=== PATIENT | male | born 2000 | race Hispanic/Latino ===

== ENCOUNTER 2024-02-15 08:05 | Inpatient (IN) | payer OTHER, SELFPAY ==
[2024-02-15 09:05] LABS: Absolute Basophils 0.1 K/uL (0-0.5); Absolute Lymphocytes (CBC) 2.5 K/uL (0.7-4.9); Absolute Monocytes 1.2 K/uL (0.1-1.3); Absolute Neutrophil 11.1 K/uL (1.8-8.0); Basophils % 0.4 % (0-1.3); Eosinophils % 0.1 % (0-4.4); Hematocrit 50.7 % (39.6-49.0); Hemoglobin 16.9 g/dL (13.6-17.9); Lymphocytes % 16.7 % (15.3-44.8); MCH 29.6 pg (27.0-35.0); MCHC 33.3 g/dL (32.0-36.0); MCV 88.9 fL (80-100); MPV 8.4 fL (7.6-11.3); Monocytes % 7.9 % (3.3-12.3); Neutrophils % 74.9 % (41.7-73.7); Nucleated RBC Absolute Count 0.3 (0-0); Nucleated Red Blood Cells % 1.8 % (0-0); Platelets 466 thou/uL (152-406); Red Cell Distribution Width 14.9 % (12.1-15.2)
[2024-02-15] MEDS ORDERED: KETOROLAC 30 MG/ML INJ ONE (09:09)
[2024-02-15] MEDS ORDERED: NA CHLORIDE 0.9% 1,000 ML ONE ×3 (09:09→15:15)
[2024-02-15] MEDS ORDERED: ONDANSETRON 4 MG/2 ML VIAL ONE (09:09)
[2024-02-15 09:27] LABS: Specific Gravity 1.017 (1.005-1.030); Sqamous Epithelial <5 /HPF (None Seen); Transitional Epithelial <5 /HPF (None Seen); Urine Bacteria None Seen /HPF (<20); Urine Bilirubin 1+ (Negative); Urine Blood 1+ (Negative); Urine Clarity Extremely Turbid (Clear); Urine Color Yellow (Yellow); Urine Culture Reflex Order NOT NEEDED; Urine Glucose NEGATIVE (Negative); Urine Ketones NEGATIVE (Negative); Urine Microscopic Reflex YN ORDER UMIC; Urine Mucus Slight /HPF (None Seen); Urine Nitrite NEGATIVE (Negative); Urine Protein 2+ (Negative); Urine RBC <5 /HPF (None Seen); Urine Urobilinogen 1+ (Normal); Urine WBC <5 /HPF (<5); Urine pH 5.5 (5.0-7.0)
[2024-02-15 09:28] LABS: Albumin 5.4 g/dL (3.4-5.0); Albumin/Globulin Ratio 1.1 (1.1-1.8); Anion Gap 20.2 mEq/L (5.0-15.0); Bilirubin Total 1.1 mg/dL (0.2-1.0); Globulin 4.7 g/dL (2.3-3.5); Potassium 3.2 mEq/L (3.5-5.1); Protein, Total 10.1 g/dL (6.4-8.2)
[2024-02-15] MEDS ORDERED: FAMOTIDINE 20 MG/2 ML VIAL IV ONE (09:29)
--- NOTE | 2024-02-15 09:47 | RAD REPORT ---
EXAM DESCRIPTION: CT - Abdomen Pelvis Wo Contrast - 02/15/2024 9:35 am CLINICAL HISTORY: Abdominal pain. ABD PAIN COMPARISON: No comparisons TECHNIQUE: CT imaging of the abdomen and pelvis was performed without contrast. Solid organ, bowel a nd vascular assessment is limited due to lack of IV and oral contrast. All CT scans are performed using dose optimization technique as appropriate and may include automated exposure control or mA/KV adjustment according to patient size. FINDINGS: The lower lung wright are clear. The liver, spleen, pancreas, adrenal glands and kidneys are within normal limits for a limited non-co ntrast examination. No bowel obstruction, free air, free fluid or abscess. The appendix is normal. The osseous structures are within normal limits. IMPRESSION: No acute intra-abdominal or pelvic findings. A limited non-contrast examination was performed as detailed.
[2024-02-15 09:49] LABS: Blood Morphology Comment NOT SEEN (NOT SEEN); Platelet Estimate ADEQ; White Blood Cell Scan OK (OK)
[2024-02-15 10:38] LABS: Anion Gap 19.2 mEq/L (5.0-15.0); Potassium 3.2 mEq/L (3.5-5.1)
--- NOTE | 2024-02-15 10:46 | EDPHYS ---
Physician Documentation [facility] Name: Trent Valenzuela Age: 24 yrs Sex: Male : 2000 Arrival Date: 02/15/2024 Time: 08:05 Bed 13 Private MD: ED Physician Juhi Thurston HPI: 02/14 09:18 This 24 yrs old Male presents to ER via Ambulatory with complaints of Vomiting.sd2 09:18 24-year-old male presents with a chief complaint of nausea, vomiting and abdominal sd2 cramping for the past 3 days. He reports he has not been able to keep anything down. He has tried taking Tylenol but has not been able to keep that down either. He denies any associated fever, shortness of breath, diarrhea or urinary symptoms. He does report a history of smoking marijuana daily for years. No new food exposures or sick contacts.. Historical: - Allergies: 08:29 No Known Allergies; ap3 - Home Meds: 08:29 None [Active]; ap3 - PMHx: 08:29 None; ap3 - Immunization history:: Client reports having NOT received the Covid vaccine. - Infectious Disease History:: Denies. - Social history:: Smoking status: Patient denies any tobacco usage or history of. Patient uses street drugs, marijuana. ROS: 09:18 Constitutional: Negative for fever, chills, and weight loss, Eyes: Negative for injury, sd2 pain, redness, and discharge, Cardiovascular: Negative for chest pain, palpitations, and edema, Respiratory: Negative for shortness of breath, cough, wheezing. Abdomen/GI: Positive for abdominal pain, nausea, vomiting, Negative for diarrhea MS/Extremity: Negative for injury and deformity, Skin: Negative for injury, rash, and discoloration, Neuro: Negative for headache, numbness and tingling. Exam: 09:18 Constitutional: This is a well developed, well nourished patient who is awake, alert, sd2 and in no acute distress. Head/Face: Normocephalic, atraumatic. Eyes: EOMI, normal conjunctiva bilaterally Chest/axilla: Normal chest wall appearance and motion. Nontender with no deformity. Cardiovascular: Regular rate and rhythm with a normal S1 and S2. No gallops, murmurs, or rubs. 2+ distal pulses. Respiratory: Lungs have equal breath sounds bilaterally, clear to auscultation and percussion. No rales, rhonchi or wheezes noted. No increased work of breathing, no retractions or nasal flaring. Abdomen/GI: Soft, ND, epigastric tenderness, no rebound or guarding Skin: Warm, dry with normal turgor. Normal color with no rashes, no lesions, and no evidence of cellulitis. MS/ Extremity: Pulses equal, no cyanosis. Neurovascular intact. Full, normal range of motion. Psych: Awake, alert, with orientation to person, place and time. Behavior, mood, and affect are within normal limits. Vital Signs: 08:27 BP 110 / 75; Pulse 99; Resp 19; Temp 98.1; Pulse Ox 99% ; Weight 68.04 kg; Height 5 ft. ap3 3 in. ; Pain 4/10; 09:53 BP 117 / 86; Pulse 67; Resp 16 S; Pulse Ox 100% on R/A; kc6 10:45 BP 129 / 71; Pulse 93; Resp 16 S; Pulse Ox 100% on R/A; kc6 11:33 BP 107 / 50; Pulse 77; Resp 16 S; Pulse Ox 100% on R/A; kc6 13:27 BP 124 / 80; Pulse 71; Resp 16 S; Pulse Ox 99% on R/A; kc6 08:27 Body Mass Index 26.57 (68.04 kg, 160.02 cm) ap3 08:27 Pain Scale: Adult ap3 MDM: 08:58 Patient medically screened. sd2 09:18 Differential diagnosis: Nonspecific abd pain, gastritis, cholecystitis, pancreatitis, sd2 appendicitis, diverticulitis, viral gastroenteritis, gastroenteritis, hyperemesis cannabinoid syndrome among others. Data reviewed: vital signs, nurses notes, lab test result(s), radiologic studies, CT scan. 10:43 I considered the following discharge prescriptions or medication management in the sd2 emergency department Medications were administered in the Emergency Department. See MAR. Care significantly affected by the following Social Determinants of Health: Misuse of alcohol and/or drugs. Response to treatment: the patient's symptoms have markedly improved after treatment. ED course: Labs reviewed with acute renal failure and hypokalemia. 2L IVFs given. CK elevated. Pt feeling improved. CTAP negative for acute pathology. Suspect hyperemesis. Pt to be admitted at this time.. 02/14 08:50 Order name: CBC with Diff; Complete Time: 09:51 kc6 02/14 08:50 Order name: CMP; Complete Time: 09:38 kc6 02/14 08:50 Order name: Lipase; Complete Time: 09:38 kc6 02/14 08:50 Order name: Urinalysis w/ reflexes; Complete Time: 09:38 kc6 02/14 09:10 Order name: CBC Smear Scan; Complete Time: 09:51 EDMS 02/14 09:38 Order name: BMP; Complete Time: 10:38 sd2 02/14 09:38 Order name: CK; Complete Time: 10:38 sd2 02/14 09:33 Order name: Abdomen ; Complete Time: 09:51 EDMS 02/14 08:50 Order name: IV Saline Lock; Complete Time: 08:50 kc6 02/14 08:50 Order name: Labs collected and sent; Complete Time: 08:50 kc6 Administered Medications: 09:19 Drug: NS 0.9% IV 1000 ml IV at 1 bolus Per protocol; 1000 mL bolus Route: IV; Rate: 1 kc6 bolus; Site: right forearm; 10:41 Follow up: Response: No adverse reaction; IV Status: Completed infusion; IV Intake: kc6 1000ml 09:19 Drug: Ketorolac IVP 15 mg IVP once Route: IVP; Site: right forearm; kc6 09:51 Follow up: Response: No adverse reaction; Pain is decreased kc6 09:19 Drug: Ondansetron IVP 4 mg IVP once; over 2 minutes Route: IVP; Site: right forearm; kc6 09:51 Follow up: Response: No adverse reaction; Nausea is decreased; Vomiting decreased kc6 09:51 Drug: Famotidine IVP 20 mg IVP once; dilute with 10 mL 0.9% NaCl; give over 2 minutes kc6 Route: IVP; Site: right forearm; 10:41 Follow up: Response: No adverse reaction kc6 09:51 Drug: NS 0.9% IV 1000 ml IV at 1 bolus Per protocol; 1000 mL bolus Route: IV; Rate: 1 kc6 bolus; Site: right forearm; 10:41 Follow up: Response: No adverse reaction; IV Status: Completed infusion; IV Intake: kc6 1000ml Disposition Summary: 02/15/24 10:45 Hospitalization Ordered Notes: Hospitalization Status: Inpatient Admission sd2 Provider: Ken Ruiz sd2 Condition: Stable sd2 Problem: new sd2 Symptoms: have improved sd2 Bed/Room Type: Standard sd2 Location: Telemetry/MedSurg (Inpatient)(02/15/24 16:52) bd Room Assignment: 222(02/15/24 16:52) bd Diagnosis - Nausea with vomiting, unspecified sd2 - Acute Kidney Injury sd2 - Marijuana use sd2 Forms: - Medication Reconciliation Form sd2 - SBAR form sd2 - Leadership Thank You Letter sd2 Signatures: Dispatcher [employer] EDMS Lizett Velez Amanda RN RN ap3 Juhi Thurston MD MD sd2 Pura Le RN RN kc6 Corrections: (The following items were deleted from the chart) 09:33 09:21 Abdomen Pelvis W Con+CT.RAD.BRZ ordered. EDMS EDMS 12:36 10:45 Telemetry/MedSurg (Inpatient) sd2 bd 12:36 10:45 sd2 bd 16:52 12:36 [facility] ER HOLD bd bd 16:52 12:36 ERHOLD- bd bd
--- NOTE | 2024-02-15 10:46 | ER ---
Nurse's Notes [facility] Name: Trent Valenzuela Age: 24 yrs Sex: Male : 2000 Arrival Date: 02/15/2024 Time: 08:05 Bed 13 Private MD: Diagnosis: Nausea with vomiting, unspecified;Acute Kidney Injury;Marijuana use Presentation: 02/14 08:27 Chief complaint: Patient states: he has been vomiting for three days with generalized ap3 abdominal pain of which he rates a 4/10 on the pain scale. Coronavirus screen: At this time, the client does not indicate any symptoms associated with coronavirus-19. Ebola Screen: No symptoms or risks identified at this time. Initial Sepsis Screen: Does the patient meet any 2 criteria? HR > 90 bpm. Does the patient have a suspected source of infection? No. Patient's initial sepsis screen is negative. Risk Assessment: Do you want to hurt yourself or someone else? Patient reports no desire to harm self or others. Onset of symptoms was February 12, 2024. 08:27 Method Of Arrival: Ambulatory ap3 08:27 Acuity: JEOVANY 3 ap3 Triage Assessment: 08:29 General: Appears in no apparent distress. Behavior is calm, cooperative, appropriate ap3 for age. Pain: Complains of pain in abdomen Pain began 2-3 days ago. Neuro: Level of Consciousness is awake, alert, obeys commands, Oriented to person, place, time, situation, Appropriate for age. Cardiovascular: Patient's skin is warm and dry. Respiratory: Airway is patent Respiratory effort is even, unlabored. GI: Pt is actively vomiting Reports lower abdominal pain, upper abdominal pain, nausea, vomiting. Historical: - Allergies: 08:29 No Known Allergies; ap3 - Home Meds: 08:29 None [Active]; ap3 - PMHx: 08:29 None; ap3 - Immunization history:: Client reports having NOT received the Covid vaccine. - Infectious Disease History:: Denies. - Social history:: Smoking status: Patient denies any tobacco usage or history of. Patient uses street drugs, marijuana. Screenin:29 [facility] ED Fall Risk Assessment (Adult) History of falling in the last 3 months, ap3 including since admission No falls in past 3 months (0 pts) Confusion or Disorientation No (0 pts) Intoxicated or Sedated No (0 pts) Impaired Gait No (0 pts) Mobility Assist Device Used No (0 pt) Altered Elimination No (0 pt) Score/Fall Risk Level 0 - 2 = Low Risk Oriented to surroundings, Maintained a safe environment, Educated pt \T\ family on fall prevention, incl call for assistance when getting out of bed, Assessed \T\ reinforced patient's understanding of fall precautions, Provided non-skid footwear, Hourly rounding (assess needs \T\ fall precautionary measures) done, Used ambulatory aids as needed (educated on \T\ assisted with), Used gait belt as appropriate. Abuse screen: Denies threats or abuse. Nutritional screening: No deficits noted. Tuberculosis screening: No symptoms or risk factors identified. Assessment: 08:30 General: Appears in no apparent distress. uncomfortable, well groomed, well developed, kc6 Behavior is calm, cooperative, appropriate for age, Smells of marijuana. Pain: Complains of pain in epigastric area, right upper quadrant and left upper quadrant. Neuro: Level of Consciousness is awake, alert, obeys commands, Oriented to person, place, time, situation, Appropriate for age. Cardiovascular: Capillary refill < 3 seconds. Respiratory: Airway is patent Trachea midline Respiratory effort is even, unlabored, Respiratory pattern is regular, symmetrical. GI: Abdomen is flat, non-distended, Pt is actively vomiting clear fluid, Bowel sounds present X 4 quads. Abd is soft X 4 quads Abdomen is tender to palpation in epigastric area, right upper quadrant and left upper quadrant Reports upper abdominal pain, epigastric pain, intolerance of fluids, intolerance of food, nausea, vomiting, Patient currently denies diarrhea. : No signs and/or symptoms were reported regarding the genitourinary system. EENT: No signs and/or symptoms were reported regarding the EENT system. Derm: No signs and/or symptoms reported regarding the dermatologic system. Skin is intact, is healthy with good turgor, Skin is pink, warm \T\ dry. Musculoskeletal: No signs and/or symptoms reported regarding the musculoskeletal system. Circulation, motion, and sensation intact. Capillary refill < 3 seconds, Range of motion: intact in all extremities. 09:53 Reassessment: Patient appears in no apparent distress at this time. No changes from kc6 previously documented assessment. Patient and/or family updated on plan of care and expected duration. Pain level reassessed. Patient is alert, oriented x 3, equal unlabored respirations, skin warm/dry/pink. 10:45 Reassessment: Patient appears in no apparent distress at this time. No changes from kc6 previously documented assessment. Patient and/or family updated on plan of care and expected duration. Pain level reassessed. Patient is alert, oriented x 3, equal unlabored respirations, skin warm/dry/pink. 11:33 Reassessment: Patient appears in no apparent distress at this time. No changes from kc6 previously documented assessment. Patient and/or family updated on plan of care and expected duration. Pain level reassessed. Patient is alert, oriented x 3, equal unlabored respirations, skin warm/dry/pink. 13:27 Reassessment: Patient appears in no apparent distress at this time. No changes from kc6 previously documented assessment. Patient and/or family updated on plan of care and expected duration. Pain level reassessed. Patient is alert, oriented x 3, equal unlabored respirations, skin warm/dry/pink. Vital Signs: 08:27 BP 110 / 75; Pulse 99; Resp 19; Temp 98.1; Pulse Ox 99% ; Weight 68.04 kg; Height 5 ft. ap3 3 in. ; Pain 4/10; 09:53 BP 117 / 86; Pulse 67; Resp 16 S; Pulse Ox 100% on R/A; kc6 10:45 BP 129 / 71; Pulse 93; Resp 16 S; Pulse Ox 100% on R/A; kc6 11:33 BP 107 / 50; Pulse 77; Resp 16 S; Pulse Ox 100% on R/A; kc6 13:27 BP 124 / 80; Pulse 71; Resp 16 S; Pulse Ox 99% on R/A; kc6 08:27 Body Mass Index 26.57 (68.04 kg, 160.02 cm) ap3 08:27 Pain Scale: Adult ap3 ED Course: 08:07 Patient arrived in ED. mr 08:28 Triage completed. ap3 08:30 Arm band placed on right wrist. ap3 08:34 Pura Le, RN is Primary Nurse. kc6 08:49 Patient has correct armband on for positive identification. Bed in low position. Call kc6 light in reach. Side rails up X 1. Pulse ox on. NIBP on. Pillow given. 08:49 Inserted saline lock: 20 gauge in right forearm, using aseptic technique. Blood kc6 collected. Flushed with 10 mL NS. 08:58 Juhi Thurston MD is Attending Physician. sd2 09:37 Abdomen In Process Unspecified. EDMS 09:51 CK Sent. kc6 09:51 BMP Sent. kc6 10:44 Ken Ruiz MD is Hospitalizing Provider. sd2 13:27 No provider procedures requiring assistance completed. Patient admitted, IV remains in kc6 place. 13:28 Provided Education on: admission. kc6 Administered Medications: 09:19 Drug: NS 0.9% IV 1000 ml IV at 1 bolus Per protocol; 1000 mL bolus Route: IV; Rate: 1 kc6 bolus; Site: right forearm; 10:41 Follow up: Response: No adverse reaction; IV Status: Completed infusion; IV Intake: kc6 1000ml 09:19 Drug: Ketorolac IVP 15 mg IVP once Route: IVP; Site: right forearm; kc6 09:51 Follow up: Response: No adverse reaction; Pain is decreased kc6 09:19 Drug: Ondansetron IVP 4 mg IVP once; over 2 minutes Route: IVP; Site: right forearm; kc6 09:51 Follow up: Response: No adverse reaction; Nausea is decreased; Vomiting decreased kc6 09:51 Drug: Famotidine IVP 20 mg IVP once; dilute with 10 mL 0.9% NaCl; give over 2 minutes kc6 Route: IVP; Site: right forearm; 10:41 Follow up: Response: No adverse reaction kc6 09:51 Drug: NS 0.9% IV 1000 ml IV at 1 bolus Per protocol; 1000 mL bolus Route: IV; Rate: 1 kc6 bolus; Site: right forearm; 10:41 Follow up: Response: No adverse reaction; IV Status: Completed infusion; IV Intake: kc6 1000ml Medication: 13:28 VIS not applicable for this client. kc6 Intake: 10:41 IV: 1000ml; Total: 1000ml. kc6 10:41 IV: 1000ml; Total: 2000ml. kc6 Outcome: 10:45 Decision to Hospitalize by Provider. sd2 13:27 Admitted to ER Hold. Please see [facility] for further documentation. kc6 13:27 Condition: good 13:27 Instructed on the need for admit, 17:52 Patient left the ED. ll1 Signatures: Dispatcher [employer] EDJanine Richardson, Reg Reg mr ToshiaElena, RN RN [id number] Ivy Tyler RN RN ll1 Juhi Thurston MD MD sd2 Pura Le RN RN kc6 Corrections: (The following items were deleted from the chart) 09:53 08:30 GI: Abdomen is flat, non-distended, Bowel sounds present X 4 quads. Abd is soft X kc6 4 quads Abdomen is tender to palpation in epigastric area, right upper quadrant and left upper quadrant Reports upper abdominal pain, epigastric pain, intolerance of fluids, intolerance of food, nausea, vomiting, Patient currently denies diarrhea, kc6
--- NOTE | 2024-02-15 11:41 | P.HP ---
Certification for Inpatient Patient admitted to: Inpatient With expected LOS: >2 Midnights Patient will require the following post-hospital care: None Practitioner: I am a practitioner with admitting privileges, knowledge of patient current condition, hospital course, and medical plan of care. Services: Services provided to patient in accordance with Admission requirements found in Title 42 Section 412.3 of the Code of Federal Regulations Patient History Date of Service: 02/15/24 Reason for admission: Acute kidney injury History of Present Illness: 24-year-old male with no known past medical history presents emergency department for 3-day history of nausea and vomiting, intolerant of oral fluids at this time. He is here from out of town, lives in the [place] area but came down for [place] work, he reports only doing around 1 day of work and already feeling ill before he started, denies heat exhaustion or similar symptoms. He was evaluated in the emergency department labs are significant for a creatinine of 5.28 GFR 15 BUN of 32 potassium [address] abdomen pelvis was performed contrast which did not show any obstructive uropathy, hydronephrosis or other acute abdominal findings. ED provider wishes to admit patient for further valuation management acute kidney injury. Of note patient did state that his sister had a history of kidney disease diagnosed at the age of 17, she ended up needing dialysis and in her 20s. He is not sure what kind of kidney disorder that she had but his family will investigate further. - Past Medical/Surgical History -: None -: None Psychosocial/ Personal History: Here from out of town, lives in the [facility]. - Family History Sister -: Kidney disease - Social History Smoking Status: Never smoker Alcohol use: No CD- Drugs: Yes Caffeine use: Yes Place of Residence: Home Review of Systems 10-point ROS is otherwise unremarkable Gastrointestinal: Nausea, Vomiting Physical Examination - Physical Exam General: Alert, In no apparent distress, Oriented x3 HEENT: Atraumatic, PERRLA, Other (Mucous membranes dry), EOMI Neck: Supple, 2+ carotid pulse no bruit, No LAD Respiratory: Clear to auscultation bilaterally, Normal air movement Cardiovascular: Regular rate/rhythm, Normal S1 S2 Gastrointestinal: Normal bowel sounds, No tenderness Musculoskeletal: No tenderness Integumentary: No rashes Neurological: Normal speech, Normal strength at 5/5 x4 extr, Normal tone, Normal affect - Studies Laboratory Data (last 24 hrs) 02/15/24 02/15/24 02/15/24 09:46 08:53 08:53 WBC 14.80 H Hgb 16.9 Hct 50.7 H Plt Count 466 H Sodium 134 L 132 L Potassium 3.2 L 3.2 L BUN 32 H 32 H Creatinine 5.28 H 5.28 H Glucose 101 113 H Total Bilirubin 1.1 H AST 66 H ALT 83 H Alkaline Phosphatase 136 H Lipase 44 Assessment and Plan - Plan Assessment: Acute kidney injury Rhabdomyolysis Intractable nausea/vomiting Plan: Acute kidney injury Rhabdomyolysis Reports sister had kidney disease diagnosed at age 17 requiring dialysis and passed in her 20s Patient to check with family to inquire about sisters diagnosis Continue aggressive IV fluids, received 2 L of normal saline in the ED CT abdomen pelvis negative for obstructive uropathy Nephrology consultedCase discussed, renal ultrasound ordered Monitor chemistries, CPK daily Denies NSAID use Intractable nausea/vomiting Clear liquid diet advance as tolerated As needed antiemetics Does report regular cannabis use, possible cannabinoid hyperemesis syndrome Counseled on need for cessation DVT PPX: Heparin subcu Code status: Full Discharge Plan: Home Plan to discharge in: Greater than 2 days - Advance Directives Does patient have a Living Will: No Does patient have a Durable POA for Healthcare: No - Code Status/Comfort Care Code Status Assessed: Yes (Full code) Critical Care: No Time Spent Managing Pts Care (In Minutes): 70
[2024-02-15] MEDS ORDERED: ACETAMINOPHEN 500 MG TAB PO PRN (14:13)
[2024-02-15 15:09] VITALS: BMI 26.6
[2024-02-15] MEDS: NA CHLORIDE 0.9% 1,000 ML IV SCH (15:17)
--- NOTE | 2024-02-15 18:33 | RAD REPORT ---
EXAM DESCRIPTION: US - Renal Ultrasound-Complete - 02/15/2024 2:51 pm CLINICAL HISTORY: aure COMPARISON: Abdomen Pelvis Wo Contrast dated 02/15/2024 TECHNIQUE: Sonographic grayscale and color flow images of the kidneys and bladder were obtained. FINDINGS: Both kidneys are small in size, with normal morphology. Bilateral renal cortical thinning and increased echogenicity noted. The right kidney measures 8 cm in length. No hydronephrosis, focal mass, or echogenic calculi. The left kidney measures 8.4 cm in length. No hydronephrosis, focal mass, or echogenic calculi. The urinary bladder is without gross abnormality seen. The left ureteral jet was visualized. IMPRESSION: Small sized kidneys with echogenic cortices, suggesting medical renal disease. No hydronephrosis. No discrete bladder abnormality.
[2024-02-15] MEDS: HEPARIN 5000 UNIT/ML 1 ML VIAL SQ SCH (20:39)
[2024-02-16 04:44] LABS: Absolute Eosinophils 0.1 K/uL (0-0.5); Absolute Lymphocytes (CBC) 3.7 K/uL (0.7-4.9); Absolute Monocytes 0.8 K/uL (0.1-1.3); Absolute Neutrophil 4.2 K/uL (1.8-8.0); Basophils % 0.3 % (0-1.3); Hematocrit 40.2 % (39.6-49.0); Hemoglobin 13.3 g/dL (13.6-17.9); Lymphocytes % 42.1 % (15.3-44.8); MCH 29.5 pg (27.0-35.0); MCV 89.2 fL (80-100); MPV 8.4 fL (7.6-11.3); Monocytes % 8.5 % (3.3-12.3); Neutrophils % 48.1 % (41.7-73.7); Platelets 316 thou/uL (152-406); Red Cell Distribution Width 14.5 % (12.1-15.2)
[2024-02-16 05:36] LABS: Albumin 3.4 g/dL (3.4-5.0); Albumin/Globulin Ratio 1.1 (1.1-1.8); Anion Gap 7.7 mEq/L (5.0-15.0); Bilirubin Total 1.2 mg/dL (0.2-1.0); Globulin 3.2 g/dL (2.3-3.5); Magnesium 2.2 mg/dL (1.6-2.4); Potassium 3.7 mEq/L (3.5-5.1); Protein, Total 6.6 g/dL (6.4-8.2); Thyroid Stimulating Hormone 0.501 uIU/mL (0.358-3.740); Uric Acid 9.6 mg/dL (3.5-7.2)
--- NOTE | 2024-02-16 09:05 | P.PN ---
Date of Service: 02/16/24 Subjective: Improving Tolerating clear liquids No further vomiting ROS: 10 point ROS as noted above, otherwise negative Physical exam GEN: Alert, oriented, NAD HEENT: Normal conjunctiva, sclera anicteric CV: Regular rate and rhythm, no edema Pulm: Nonlabored respirations on room air ABD: Soft, nontender, nondistended MSK: No joint tenderness Integumentary: No rashes Neuro: Normal speech, normal affect Vitals reviewed Assessment: Acute kidney injury Rhabdomyolysis Intractable nausea/vomiting Plan: Acute kidney injury Rhabdomyolysis Reports sister had kidney disease diagnosed at age 17 requiring dialysis and passed in her 20s Patient to check with family to inquire about sisters diagnosis Continue IV fluids CR/CPK improving CT abdomen pelvis negative for obstructive uropathy Nephrology consultedCase discussed, renal ultrasound shows small kidneys, georgina pected underlying medical disease Monitor chemistries, CPK daily Denies NSAID use Intractable nausea/vomiting Improved, diet advanced encourage PO intake Does report regular cannabis use, possible cannabinoid hyperemesis syndrome Counseled on need for cessation DVT PPX: Heparin subcu Code status: Full Discharge Plan: Home Plan to discharge in: Greater than 2 days Time Spent Managing Pts Care (In Minutes): 35
[2024-02-16] MEDS: NA CHLORIDE 0.9% 1,000 ML IV ONE (11:15)
--- NOTE | 2024-02-16 15:15 | CON ---
Date of Consultation: 02/16/2024 Reason For Consultation: Elevated BUN and creatinine, fluid management, rhabdomyolysis. History Of Present Illness: This is a 24-year-old gentleman with significant past medical history negative. The patient came to the hospital after working outside, start having cramps and feeling weak. For that reason, reported to the ER. In the ER, found to have creatinine 5.2, GFR of 15 with CK 2900. The patient was started on hydration. Kidney function has been improved. The patient has a strong family history with a sister of kidney disease. No kidney biopsy according to him, but she because of kidney disease. Past Medical History: Negative. Past Surgical History: Negative. Family History: Positive for kidney disease. Social History: Denied smoking, denied drinking. Positive for drug use. Review of Systems: Head and Neck: No red eye. No ear pain. GI: No nausea, no vomiting. : No polyuria, no dysuria, no hematuria. DIRECTOR BIOLOGICS: Not applicable. Respiratory: No shortness of breath. Cardiovascular: No chest pain. Endocrine: No polydipsia. Skin: No rash. Neuro: Muscle ache. Musculoskeletal: Body ache. Physical Examination: Vital Signs: When I saw the patient, blood pressure 114/65, pulse of 48, afebrile. Chest: Clear to auscultation. Heart: S1, S2. Regular. Abdomen: Soft, nontender. Extremities: No edema. Neuro: Alert. No focality. Laboratory Data: Upon admission, hemoglobin 16.9. Sodium 132, potassium 3.2, bicarb 21, BUN 32, creatinine 5.2, calcium of 10. Today lab data, sodium 139, potassium 3.7, bicarb 27, BUN 31, creatinine 2.6. GFR 34. Calcium of 8.8. Uric acid 9.6, PTH 139. Hemoglobin down to 13.3. CK down from 2900 to 1600. Urinalysis negative for infection, positive for +2 protein. Renal ultrasound, small size kidney /8.4. Current Medications: The patient on include Zofran, Tylenol, heparin, IV fluid. Assessment And Plan: 1. Acute kidney injury secondary to prerenal, dehydration, superimposed with rhabdomyolysis. Looked to me, still on the dry side. I will bolus the patient with 1 L again. 2. Hyponatremia, depletional, recovered, resolved. 3. Rhabdomyolysis. We will continue aggressive hydration for the patient. 4. Hypokalemia, we will supplement. 5. Proteinuria with small size kidney. I am going to quantify the proteinuria and we will follow up the patient. Thank you Dr. Ruiz for allowing us to participate in the care of your patient. Time spent examining the patient [id number] reviewing data lab and the radiology placing orders discussing the case with the patient discussing the case with the steam drier tender including hospitalist and nursing staff more than 75 minutes KRISTYN Voice ID: [id number] Report ID: [id number] DANIELE
[2024-02-16 17:29] LABS: UR PROTEIN 19.9 mg/dL (<11.9); Urine Protein/Creatinine Ratio 0.24 ratio (<0.15)
[2024-02-16] MEDS: ONDANSETRON 4 MG/2 ML VIAL IV PRN (20:08)
[2024-02-17 04:56] LABS: Absolute Eosinophils 0.1 K/uL (0-0.5); Absolute Lymphocytes (CBC) 3.4 K/uL (0.7-4.9); Absolute Monocytes 0.5 K/uL (0.1-1.3); Basophils % 0.3 % (0-1.3); Eosinophils % 1.2 % (0-4.4); Hematocrit 35.6 % (39.6-49.0); Hemoglobin 12.1 g/dL (13.6-17.9); Lymphocytes % 49.1 % (15.3-44.8); MCH 30.4 pg (27.0-35.0); MCHC 34.2 g/dL (32.0-36.0); MCV 89.1 fL (80-100); MPV 8.2 fL (7.6-11.3); Monocytes % 6.6 % (3.3-12.3); Neutrophils % 42.8 % (41.7-73.7); Platelets 259 thou/uL (152-406); RBC Red Blood Cell Count 3.99 M/uL (4.33-5.43); Red Cell Distribution Width 14.4 % (12.1-15.2)
[2024-02-17 05:10] LABS: Albumin 3.2 g/dL (3.4-5.0); Albumin/Globulin Ratio 1.1 (1.1-1.8); Anion Gap 5.7 mEq/L (5.0-15.0); Bilirubin Total 0.8 mg/dL (0.2-1.0); Globulin 2.9 g/dL (2.3-3.5); Magnesium 1.4 mg/dL (1.6-2.4); Phosphorus 2.2 mg/dL (2.5-4.9); Potassium 3.7 mEq/L (3.5-5.1); Protein, Total 6.1 g/dL (6.4-8.2)
[2024-02-17] MEDS: NA CHLORIDE 0.9% 1,000 ML ONE (09:47)
[2024-02-17] MEDS: POTASS/SODIUM PHOSPHATE 1 PKT POWD.PACK PO SCH (09:50)
[2024-02-17] MEDS: POTASSIUM CL SA 10 MEQ TAB PO ONE (09:51)
[2024-02-17] MEDS: Magnesium Sulfate 2gm IVPB 2 G/50 ML BAG IV ONE (09:52)
--- NOTE | 2024-02-17 11:43 | PN ---
Date of Progress Note: 02/17/2024 Subjective: The patient was admitted to the hospital with acute kidney injury secondary to rhabdomyolysis, secondary to heat exertion. The patient was started on hydration. Kidney function is back to normal. The patient is feeling better. Physical Examination: Vital Signs: Blood pressure 116/73, pulse of 58. Chest: Clear to auscultation. Heart: S1, S2. Regular. Abdomen: Soft, nontender. Extremities: No edema. Laboratory Data: Hemoglobin 12.1. Sodium 143, potassium 3.7, bicarb 29, BUN 18, creatinine 1.5. GFR of 65. Calcium 8.1. Phosphorus 2.2, magnesium 1.4. Current Medications: The patient is on heparin, IV fluid, magnesium sulfate. Assessment And Plan: 1. Acute kidney injury secondary to rhabdomyolysis, recovered, resolved. I am going to go ahead and discontinue IV fluid. The patient is cleared from the renal standpoint for discharge planning. 2. Hypomagnesemia. We will supplement. 3. Rhabdomyolysis secondary to heat exertion, recovered, resolved. 4. Hyponatremia, depletion, resolved. 5. Hypokalemia. We will supplement. The patient is cleared from the renal standpoint for discharge planning. Time spent examining the patient [id number] reviewing data lab and the radiology placing orders discussing the case with the patient discussing the case with the steam finisher including hospitalist and nursing staff more than 55 minutes KRISTYN Voice ID: [id number] Report ID: [id number] DANIELE
--- NOTE | 2024-02-17 12:33 | P.DS ---
Admission Date: 02/15/24 Discharge Date: 02/17/24 Disposition: ROUTINE DISCHARGE Discharge Condition: GOOD Reason for Admission: Acute kidney injury Consultations: Nephrology- Dr. Aquino Brief History of Present Illness: 24-year-old male with no known past medical history presents emergency department for 3-day history of nausea and vomiting, intolerant of oral fluids at this time. He is here from out of town, lives in the [place] area but came down for [place] work, he reports only doing around 1 day of work and already feeling ill before he started, denies heat exhaustion or similar symptoms. He was evaluated in the emergency department labs are significant for a creatinine of 5.28 GFR 15 BUN of 32 potassium [address] abdomen pelvis was performed contrast which did not show any obstructive uropathy, hydronephrosis or other acute abdominal findings. ED provider wishes to admit patient for further valuation management acute kidney injury. Of note patient did state that his sister had a history of kidney disease diagnosed at the age of 17, she ended up needing dialysis and in her 20s. He is not sure what kind of kidney disorder that she had but his family will investigate further. Hospital Course: Assessment: Acute kidney injury Rhabdomyolysis Intractable nausea/vomiting hyponatremia hypokalemia Patient presented to the emergency department with 3-day history of nausea/vomiting and intolerance of p.o. fluids. He was found to have elevated CPK initially 2992, initial creatinine 5.[address] abdomen pelvis was negative for acute findings, renal ultrasound was performed which did not show obstructive uropathy or hydronephrosis. Patient was treated with aggressive IV fluids and had marked improvement of his renal function, today's creatinine is 1.52, GFR 65 his CPK trended down and is currently 991. He was seen by nephrology who recommends further management as an outpatient.. Patient lives in the [facility] and plans on returning home, recommend he follows up with a local orthodontist small business owner in the next 1 to 2 weeks for repeat blood work, further management. The patient did report his sister developed renal failure and was dialysis dependent at a young age, they are unclear of the etiology of her renal failure. Recommend further evaluation again with nephrology. You should avoid anti-inflammatory pain medications including ibuprofen, Aleve, Excedrin, naproxen. Is okay to take Tylenol for pain Vital Signs/Physical Exam: Temp Pulse Resp BP Pulse Ox 97.3 F 60 15 117/76 100 02/17/24 12:00 02/17/24 12:00 02/17/24 12:00 02/17/24 12:00 02/17/24 12:00 General: Alert, In no apparent distress, Oriented x3 HEENT: Atraumatic, PERRLA, EOMI Neck: Supple, JVD not distended Respiratory: Clear to auscultation bilaterally, Normal air movement Cardiovascular: Regular rate/rhythm, Normal S1 S2 Gastrointestinal: Normal bowel sounds, No tenderness Musculoskeletal: No tenderness Integumentary: No rashes Neurological: Normal speech, Normal tone, Normal affect Laboratory Data at Discharge: WBC 6.90 thou/uL (4.3-10.9) 02/17/24 04:18 Hgb 12.1 g/dL (13.6-17.9) L D 02/17/24 04:18 Hct 35.6 % (39.6-49.0) L 02/17/24 04:18 Plt Count 259 thou/uL (152-406) 02/17/24 04:18 Sodium Cancelled 02/17/24 Unknown Potassium Cancelled 02/17/24 Unknown BUN Cancelled 02/17/24 Unknown Creatinine Cancelled 02/17/24 Unknown Glucose Cancelled 02/17/24 Unknown Uric Acid 9.6 mg/dL (3.5-7.2) H 02/16/24 04:10 Phosphorus 2.2 mg/dL (2.5-4.9) L 02/17/24 04:18 Magnesium 1.4 mg/dL (1.6-2.4) L 02/17/24 04:18 Total Bilirubin 0.8 mg/dL (0.2-1.0) 02/17/24 04:18 AST 24 U/L (15-37) 02/17/24 04:18 ALT 39 U/L (16-61) 02/17/24 04:18 Alkaline Phosphatase 76 U/L (45-117) 02/17/24 04:18 Lipase 44 U/L (13-75) 02/15/24 08:53 Home Medications: NK [No Home Meds] 02/15/24 Physician Discharge Instructions: Patient presented to the emergency department with 3-day history of nausea/vomiting and intolerance of p.o. fluids. He was found to have elevated CPK initially 2992, initial creatinine 5.[address] abdomen pelvis was negative for acute findings, renal ultrasound was performed which did not show obstructive uropathy or hydronephrosis. Patient was treated with aggressive IV fluids and had marked improvement of his renal function, today's creatinine is 1.52, GFR 65 his CPK trended down and is currently 991. He was seen by nephrology who recommends further management as an outpatient.. Patient lives in the [facility] and plans on returning home, recommend he follows up with a local orthodontist small business owner in the next 1 to 2 weeks for repeat blood work, further management. The patient did report his sister developed renal failure and was dialysis dependent at a young age, they are unclear of the etiology of her renal failure. Recommend further evaluation again with nephrology. You should avoid anti-inflammatory pain medications including ibuprofen, Aleve, Excedrin, naproxen. Is okay to take Tylenol for pain Diet: Regular Activity: Ad kalani Followup: Cristino Aquino MD [ACTIVE - CAN ADMIT] - 1-2 Weeks NONE,NONE [Primary Care Provider] - 1-2 Weeks Time spent managing pt's care (in minutes): 35
[2024-02-17 18:49] VITALS: BP 117/76; TEMP 97.3; O2SAT 97
== END 2024-02-17 13:31 | disposition home or self-care (01) | DRG 683 ==
LOC: ER 08:05 → ERHOLD 11:26 → 2ND 17:08
PROVIDERS: ADMIT Hospitalist; ATTEND Hospitalist
DX: N17.9 Acute kidney failure, unspecified (principal); E87.1 Hypo-osmolality and hyponatremia; M62.82 Rhabdomyolysis; E87.6 Hypokalemia; E86.0 Dehydration; E83.42 Hypomagnesemia; T67.5XXA Heat exhaustion, unspecified, initial encounter; Z28.310 Unvaccinated for COVID-19
CPT/HCPCS: 36415; 74176; 76770; 80048; 80053; 80069; 81001; 82550; 82570; 83690; 83735; 83970; 84156; 84439; 84443; 84550; 85025; 96361; 96374; 96375; 99285; J1644; J2405; J3475; J7030